=== PATIENT | male | born 1985 | race Caucasian/White ===

== ENCOUNTER 2024-01-05 16:42 | Emergency (ER) | payer OTHER ==
[~2024-01-05] VITALS: Ht 185.4 cm; Wt 90.9 kg
[2024-01-05 16:50] VITALS: BP 128/81
[2024-01-05] MEDS ORDERED: FLUOROMETHOLONE5 M1 OP (17:09)
[2024-01-05] MEDS ORDERED: TIMOLOL MALEATE10 M1 OD (17:09)
[2024-01-05] MEDS ORDERED: Ketorolac 30 MG/ML VIAL IM ONE (17:30)
== END 2024-01-05 17:36 | disposition home or self-care (01) ==
LOC: ED 16:42
DX: M54.50 Low back pain, unspecified (principal); V48.6XXA Car passenger injured in noncollision transport accident in traffic accident, initial encounter; Y92.410 Unspecified street and highway as the place of occurrence of the external cause
CPT/HCPCS: J1885